=== PATIENT | female | born 1950 | race Two or more races ===

== ENCOUNTER 2021-11-18 10:17 | Outpatient (CLI) | payer SELFPAY, OTHER ==
--- NOTE | 2021-11-18 10:23 | ECHOD_ITS ---
Reason For Study: ARRHYTHMIA Procedure This was a 2D Doppler, Color Flow transthoracic echocardiogram. The study was technically difficult. Due to ARRHYTHMIA. Exam performed in department. Left Ventricle Normal LV size. Left ventricular systolic function is lower limits of normal. The estimated ejection fraction is 53 %. Unable to assess diastolic dysfunction due to arrhythmia. No regional wall motion abnormalities noted. Right Ventricle Normal RV size. Normal systolic function. Atria The left atrium is mildly enlarged. Normal right atrium. Mitral Valve Normal mitral valve. Tricuspid Valve Normal tricuspid valve. Mild tricuspid valve insufficiency. Pulmonary artery systolic pressure is 24 mmHg. Aortic Valve Trisinus/trileaflet aortic valve. Pulmonic Valve Normal pulmonic valve. Great Vessels Normal aortic root. The pulmonary artery is normal size. Normal inferior vena cava. Pericardium/Pleural No pericardial effusion. MMode/2D Measurements & Calculations LVIDd: 4.2 cm IVSd: 0.89 cm Ao root diam: 3.0 cm LVIDs: 2.6 cm LVPWd: 0.93 cm RVDd: 3.1 cm FS: 37.3 % LAV(MOD-bp): 79.9 ml LA A4 area: 22.2 cm2 LA dimension(2D): 3.8 cm LAV(MOD-bp) Indexed: 46.3 ml/m2 LAV(MOD-sp2): 78.9 ml LAV(MOD-sp4): 74.6 ml RA A4 area: 15.8 cm2 Doppler Measurements & Calculations MV E max cecily: 92.7 cm/sec Ao V2 max: 73.9 cm/sec LV V1 max: 60.3 cm/sec Ao max P.2 mmHg LV V1 max P.5 mmHg PA V2 max: 68.1 cm/sec TR max cecily: 225.3 cm/sec TR max P.3 mmHg ECHO/Echo Complete Interpretation Summary Normal LV size. Left ventricular systolic function is lower limits of normal. The estimated ejection fraction is 53 %. Unable to assess diastolic dysfunction due to arrhythmia. Pulmonary artery systolic pressure is 24 mmHg. Ordering Physician: Jorge Quinonez Referring Physician: Tomasa Huddleston Performed By: Jaja Bautista, HERMAN, RVT
== END 2021-11-18 23:59 | disposition home or self-care (01) ==
PROVIDERS: PCP Family Medicine; Referring Provider Internal Medicine Cardiovascular Disease; Visit Provider Internal Medicine Cardiovascular Disease
DX: I48.91 Unspecified atrial fibrillation (principal); I77.9 Disorder of arteries and arterioles, unspecified; Z86.73 Personal history of transient ischemic attack (TIA), and cerebral infarction without residual deficits
CPT/HCPCS: 93306